=== PATIENT | male | born 1995 | race Caucasian/White ===

== ENCOUNTER 2017-12-11 08:16 | Emergency (ER) | payer SELFPAY ==
[~2017-12-11] VITALS: Ht 182.9 cm; Wt 102.1 kg
[2017-12-11 08:20] VITALS: BP_SYST 153
[2017-12-11] MEDS ORDERED: IBUPROFEN 800 MG TABLET PO ONE (09:30)
[2017-12-11] MEDS ORDERED: IBUPROFEN 800 MG TABLET ONE (09:31)
[2017-12-11] MEDS ORDERED: ONDANSETRON 4 MG ODT TAB PO ONE (10:00)
== END 2017-12-11 09:40 | disposition home or self-care (01) ==
LOC: SED 08:16
DX: S52.592A Other fractures of lower end of left radius, initial encounter for closed fracture (principal); S93.401A Sprain of unspecified ligament of right ankle, initial encounter; S80.02XA Contusion of left knee, initial encounter; S80.01XA Contusion of right knee, initial encounter; F15.10 Other stimulant abuse, uncomplicated; J45.909 Unspecified asthma, uncomplicated; W13.2XXA Fall from, out of or through roof, initial encounter; Y93.89 Activity, other specified; Y92.89 Other specified places as the place of occurrence of the external cause; Y99.8 Other external cause status
CPT/HCPCS: 29125; 73090; 73110; 73564; 73610; 99284; Q0162